=== PATIENT | female | born 1935 | race Caucasian/White ===

== ENCOUNTER 2018-04-18 16:13 | Inpatient (IN) | payer MEDICARE, OTHER ==
[~2018-04-18] VITALS: Ht 152.4 cm; Wt 48.2 kg
[~2018-04-18 16:13] MED LIST: ACET500T73 PO; ALBU1.25 IH; ALBU1.25 NEB; AMLO2.5T3 PO; ATOR20TA PO; Aspirin PO; BUDE0.5A3 IH; CALC-524 PO; CARI350T14 PO; CARV3.122 PO; CHOL500016 PO; DULO30CA2 PO; FLAX100016 PO; FLUT1DIS3 IH; FURO-81 PO; GABA300C PO; GABA300C10 PO; GABA600T2 PO; HYDR12.53 PO; LISI-410 PO; LISI-414 PO; METH-3 PO; METO25TA4 PO; MULT1TAB52 PO; Magnesium Oxide PO; NAPR-636 PO; OMEG300C PO; OMEP20CA12 PO; PANT40TA3 PO; POTA20TA14 PO; PRAM0.255 PO; PRAV20TA2 PO; PREG100C PO; RAMI1.2524 PO; RAMI5CAP57 PO; ROPI3TAB4 PO; SPIR25TA PO; TERI2.4P SQ; TORS20TA2 PO; TRAM50TA PO; ZOLP10TA PO
--- NOTE | 2018-04-18 16:30 | NUR ---
ARRIVAL PT ARRIVED TO UNIT VIA W/C, NO S/S OF DISTRESS NOTED. V/S OBTAINED. CALL LIGHT WITHIN REACH. BED LOCKED AND LOW POSITION. WILL CONT TO MONITOR.
[2018-04-18] MEDS ORDERED: TYLENOL PO PRN (17:00)
[2018-04-18] MEDS ORDERED: ZOFRAN IV PRN (17:00)
[2018-04-18 17:33] VITALS: BP 178/100
[2018-04-18 17:42] LABS: BASOPHIL % 0.6 % (0.0-0.2); EOSINOPHIL # 0.2 10^3/uL (0.0-0.2); EOSINOPHIL % 3.1 % (0.0-5.0); HEMOGLOBIN 13.1 g/dL (12.0-15.0); LYMPHOCYTES # 1.1 10^3/uL (1.0-4.8); LYMPHOCYTES % 23.8 % (24.0-44.0); MEAN CELL HGB 30.5 pg (26-34); MEAN CELL HGB CONCENTRATION 33.5 g/dL (33-37); MEAN CORP VOLUME 91.1 fL (78-100); MEAN PLATELET VOLUME 9.4 fL (7.8-11.0); MONOCYTES # 0.8 10^3/uL (0.3-0.8); MONOCYTES % 16.7 % (5.0-12.0); NEUTROPHIL # 2.6 10^3/uL (1.8-7.7); NEUTROPHILS % 55.4 % (41.0-85.0); RED CELL DISTRIBUTION WIDTH 16.4 % (11.5-14.5); WHITE BLOOD CELL 4.8 10^3/uL (4.5-11.0)
[2018-04-18 17:59] LABS: CALCIUM 9.5 mg/dL (8.4-10.5); CARBON DIOXIDE 29.3 mmol/L (20.0-32)
[2018-04-18 19:17] LABS: ABG PCO2 30.7 mmHg (35.0-45.0); ABG PH 7.532 (7.350-7.450); BE(B) 3.1 mmol/L (-2.0-2.0); HCO3act 25.2 mmol/L (22.0-26.0); pO2 72.5 mmHg (75.0-100.0)
--- NOTE | 2018-04-18 19:26 | DIREP ---
PROCEDURE:CHEST 2 VIEWS COMPARISON:None. INDICATIONS:copd FINDINGS: LUNGS/PLEURA:No acute cardiopulmonary disease. No effusions. VASCULATURE:Normal. Unremarkable pulmonary vasculature. CARDIAC:Normal. No cardiac silhouette abnormality or cardiomegaly. MEDIASTINUM:Normal. No visible mass or adenopathy. BONES:Severe S-shaped scoliosis of the spine with convexity to the right in the thoracic region and convexity to the left in the cervical and lumbar regions. Degenerative changes in the shoulders. Postop changes in the cervical spine. OTHER:Negative. CONCLUSION: 1. No acute cardiopulmonary disease. Degenerative and postop changes in the spine with scoliosis. Dictated by: Kade Orozco M.D. on 04/18/2018 at 07:23 PM
[2018-04-18] MEDS ORDERED: NS 100ML 100 ML IV ONE (20:04)
[2018-04-18] MEDS ORDERED: ROCEPHIN ONE (20:04)
[2018-04-18 20:07] LABS: BILIRUBIN,URINE NEGATIVE (NEGATIVE); UROBILINOGEN,URINE NORMAL (NEGATIVE)
[2018-04-18 20:08] VITALS: BP 135/89
[2018-04-18] MEDS: NS 1000ML/KCL 20MEQ 1,000 ML IV SCH (20:15)
[2018-04-18 20:17] LABS: APPEARANCE,URINE CLEAR (CLEAR); UA COLOR YELLOW (YELLOW)
[2018-04-18] MEDS ORDERED: ROCEPHIN 1,000 MG in NS 100ML 100 ML IV SCH (20:30)
[2018-04-18] MEDS: PULMICORT IH SCH (20:30)
[2018-04-18] MEDS: VENTOLIN IH SCH (20:30)
[2018-04-18] MEDS ORDERED: PULMICORT IH SCH (21:00)
[2018-04-18] MEDS ORDERED: NEURONTIN PO SCH (21:00)
[2018-04-18] MEDS ORDERED: COREG PO SCH (21:00)
[2018-04-18] MEDS: NEURONTIN PO SCH (21:02)
[2018-04-18] MEDS: COREG PO SCH (21:02)
[2018-04-18] MEDS: LIPITOR PO SCH (21:02)
[2018-04-18] MEDS: MIRAPEX PO SCH (21:02)
[2018-04-18] MEDS: AMBIEN PO PRN (21:18)
--- NOTE | 2018-04-18 22:54 | NUR ---
repeat lactic drawn result 0.9 was 4 on admission
[2018-04-18] MEDS ORDERED: BENADRYL PO ONE (23:00)
[2018-04-19 00:49] VITALS: BP 142/78
[2018-04-19] MEDS: VENTOLIN IH SCH ×4 (02:03→20:20)
[2018-04-19] MEDS: NS 1000ML/KCL 20MEQ 1,000 ML IV SCH ×2 (02:45→16:23)
[2018-04-19] MEDS: ULTRAM PO PRN ×2 (04:09→22:22)
[2018-04-19 05:07] VITALS: BP 163/91
--- NOTE | 2018-04-19 06:30 | NUR ---
REPORT REPORT RECEIVED FROM Harjinder ALANIS LVN ASSUMED CARE OF PT
--- NOTE | 2018-04-19 07:42 | NUR ---
STATUS RECEIVED BEDSIDE REPORT AND ASSUMED CARE. PATIENT IN BED LOW LOCKED POSITION WITH SIDE RAILS UPX2. FAMILY AT BEDSIDE, CALL LIGHT WITHIN REACH. PATIENT STATES " I DO NOT HAVE ANY NEEDS RIGHT NOW"
[2018-04-19] MEDS ORDERED: NORCO 5MG PO ONE (08:04)
[2018-04-19] MEDS: CYMBALTA PO SCH (08:17)
[2018-04-19] MEDS: ASPIRIN EC PO SCH (08:17)
[2018-04-19] MEDS: MIRAPEX PO SCH ×2 (08:17→20:55)
[2018-04-19] MEDS: PROTONIX PO SCH (08:17)
[2018-04-19] MEDS: COZAAR PO SCH (08:17)
[2018-04-19] MEDS: NEURONTIN PO SCH ×4 (08:17→20:55)
[2018-04-19] MEDS: COREG PO SCH ×2 (08:18→21:13)
[2018-04-19 08:25] VITALS: BP 163/92
[2018-04-19] MEDS: PULMICORT IH SCH ×2 (08:47→20:20)
[2018-04-19] MEDS ORDERED: PROTONIX PO SCH (09:00)
--- NOTE | 2018-04-19 10:15 | NUR ---
DISCHARGE PLAN CM VISITED WITH PATIENT CONCERNING DISCHARGE PLAN AND GOAL. PATIENT LIVES AT HOME ALONE. FAIRLY INDEPENDENT PRIOR TO HOSPITALIZATION. LIVES IN [facility]. DAUGHTER ALSO LIVES IN [facility] TO ASSIST WHEN NEEDED. HAS WALKER, CANE, AND SHOWER CHAIR. HOME O2 USED AT NIGHT TIME ONLY PROVIDED BY [facility]. CM EDUCATED PATIENT ON HOME HEALTH, OUTPATIENT PHYSICAL THERAPY, AND HALFWAY FACILITY. PT STATED, "I HAD [facility] IN THE PAST. I WAS NOT VERY HAPPY WITH THEIR SERVICES. I WOULD LIKE TO TRY [facility] THIS TIME." CHOICE LETTER SIGNED. [facility] FROM [facility] CONTACTED ABOUT REFERRAL. PATIENT WILL POSSIBLY BE DISCHARGED OVER THE WEEKEND. [facility] WILL COME UP TO HOSPITAL TO SPEAK WITH PATIENT THIS AFTERNOON. DISCHARGE GOAL IS TO DISCHARGE HOME WITH [facility], SELF CARE, AND [facility] TO CONTINUE TO PROVIDE OXYGEN NEEDS.
[2018-04-19 12:40] VITALS: BP 152/89
[2018-04-19] MEDS: ANALPRAM 2.5% TP SCH ×3 (15:08→21:18)
[2018-04-19] MEDS: ATARAX PO ONE ×2 (15:08→16:23)
[2018-04-19 16:26] VITALS: BP 156/83
--- NOTE | 2018-04-19 18:30 | NUR ---
DR HI DO NOTIFIED OF LOOSE STOOL, ORDER RECEIVED FOR CDIFF, GRAM STAIN, WBC, AND CULTURE OF STOOL. WILL CONT TO MONITOR.
[2018-04-19] MEDS ORDERED: IMODIUM PO PRN (19:00)
[2018-04-19] MEDS: ATARAX PO SCH (20:54)
[2018-04-19] MEDS: LEVAQUIN PO SCH (20:54)
[2018-04-19 21:05] VITALS: BP 157/84
[2018-04-19] MEDS: LIPITOR PO SCH (21:13)
[2018-04-19] MEDS: AMBIEN PO PRN (23:23)
[2018-04-20 00:05] VITALS: BP 160/101
[2018-04-20] MEDS: NS 1000ML/KCL 20MEQ 1,000 ML IV SCH ×3 (01:19→18:45)
[2018-04-20] MEDS: VENTOLIN IH SCH ×4 (03:01→21:01)
[2018-04-20 04:21] VITALS: BP 155/84
[2018-04-20 08:57] VITALS: BP 154/91
[2018-04-20] MEDS: PULMICORT IH SCH ×2 (08:57→21:01)
[2018-04-20] MEDS: COZAAR PO SCH (08:59)
[2018-04-20] MEDS: ATARAX PO SCH ×2 (08:59→21:13)
[2018-04-20] MEDS: MIRAPEX PO SCH ×2 (08:59→21:13)
[2018-04-20] MEDS: NEURONTIN PO SCH ×3 (08:59→21:13)
[2018-04-20] MEDS: PROTONIX PO SCH (08:59)
[2018-04-20] MEDS: COREG PO SCH ×2 (08:59→21:13)
[2018-04-20] MEDS: ASPIRIN EC PO SCH (08:59)
[2018-04-20] MEDS: CYMBALTA PO SCH (08:59)
[2018-04-20] MEDS: ANALPRAM 2.5% TP SCH ×2 (09:00→21:13)
--- NOTE | 2018-04-20 12:15 | NUR ---
DR. HI DO HERE TO SEE PT AT THIS TIME. PT OKAY TO BE SALINE LOCKED.
--- NOTE | 2018-04-20 13:07 | HPH ---
ADMIT DATE: 04/18/2018 CHIEF COMPLAINT: Nausea, vomiting, anorexia, chills, fever-like symptoms, dehydration, weakness and loss of weight. HISTORY OF PRESENT ILLNESS: The patient is an 82-year-old white female with underlying history of hypertension, hypertensive heart disease and COPD and multiple hospitalizations for pneumonia and worsening COPD status with severe degenerative joint disease and significant kyphoscoliosis and she came to the office with nausea, vomiting, chills and fever and felt very poorly and had some degree of decreased urination and no specific dysuria or frequency was complained at that time. The patient had elevated lactic acid ____ urine and was admitted with possible urosepsis and urinary tract infection, dehydration for further evaluation and management. The office notes had been sent, which showed the details of the past history. ALLERGIES: PENICILLIN, SULFA, FOSAMAX, CODEINE. MEDICATIONS: She has been on multiple medications, which include Tylenol 1 gram q. 6 hours p.r.n., albuterol nebulizer treatment 4 times a day, Soma compound 350 mg twice a day on p.r.n. basis, vitamin D3 5000 units daily, Lasix 20 mg once a day, ramipril 1.25 mg twice a day, omega-3 fish oil capsule 300 mg once a day, Mirapex 0.125 mg at bedtime, Lyrica 100 mg capsule twice a day, aspirin 81 mg once a day, magnesium 400 mg twice a day. She takes Pulmicort nebulizer treatment twice a day. PAST MEDICAL HISTORY: See the office details for the past history, multiple admissions for general debility, weakness, ____ and has had hip replacement and even had an episode of paroxysmal atrial fibrillation in the past, has been intolerant to anticoagulation. SOCIAL HISTORY: Prior history of significant smoking, almost 40 pack year history of smoking. No history of any ethanol abuse. FAMILY HISTORY: Positive for heart problem. PHYSICAL EXAMINATION: GENERAL: Alert, awake, oriented and she is 152 cm, 48 kg, BMI 20.8. VITAL SIGNS: At the time of admission with pulse of 80, temperature 98, blood pressure 156/90, respirations were 16 and saturation 92 on 2 liters nasal cannula, leant and asthenically built with weight loss. HEENT: Unremarkable. She was having chills and rigors, but her temperature was normal. NECK: No JVD. No carotid bruits. BACK: Kyphoscoliosis noted and she has ____. LUNGS: Poor air entry bilaterally. HEART: Sounds S1, S2 normal. ABDOMEN: Scaphoid. No organomegaly. Bowel sounds present. EXTREMITIES: Proximal muscle wasting, very unsteady on her feet, distal pulses felt. NEUROLOGIC: No focal neuro deficit is documented. LABORATORY DATA: Showed normal CBC. Chemistries were all normal. Initial blood gas, pH 7.53 with pCO2 of 30 and pO2 of 72. Lactic acid was 4, which came down to 0.9 and she got judicious fluids. Urine showed wbc's and few bacteria. Glucose was 111. Chest x-ray shows no active cardiopulmonary disease. IMPRESSION: Elevated lactic acid, urinary tract infection, chronic obstructive pulmonary disease, possible sepsis or very likely systemic inflammatory response syndrome. PLAN: At this time is IV fluids, antibiotics and further management depending on the clinical course. Aleah Thornton MD DR: SON/sandra JOB# [id number]
[2018-04-20 14:39] VITALS: BP 152/78
--- NOTE | 2018-04-20 18:40 | NUR ---
STATUS RECEIVED BEDSIDE REPORT AND ASSUMED CARE. PATIENT IN BED LOW LOCKED POSITION WITH SIDE RAILS UPX2, CALL LIGHT WITHIN REACH. PATIENT STATES DENIES FURTHER NEEDS AT THIS TIME
--- NOTE | 2018-04-20 18:45 | NUR ---
STATUS RECEIVED BEDSIDE REPORT AND ASSUMED CARE. PATIENT IN BED LOW LOCKED POSITION WITH SIDE RAILS UPX2, CALL LIGHT WITHIN REACH. PATIENT STATES DENIES FURTHER NEEDS AT THIS TIME. ASSUMED PATIENT CARE
[2018-04-20 20:03] VITALS: BP 163/99
[2018-04-20] MEDS: LIPITOR PO SCH (21:13)
[2018-04-20] MEDS: LEVAQUIN PO SCH (21:15)
[2018-04-20] MEDS: AMBIEN PO PRN (21:31)
[2018-04-21 00:17] VITALS: BP 158/88
--- NOTE | 2018-04-21 02:46 | PNH ---
DATE: 04/19/2018 SUBJECTIVE: The patient had some degree of diarrhea. Stool samples have been sent. Overall, she feels well. She has a rash, she thinks it is related to Rocephin. I switched her to Levaquin and urine cultures are awaited. OBJECTIVE: VITAL SIGNS: Stable. NECK: No JVD, no carotid bruits. LUNGS: Clear. HEART: Sounds normal. Hydration status is improved. She is not having any fever or chills. Her lactic ____ is down from 4 to 0.9. Continue same optimized medical therapy, awaiting cultures. Laxmichand MD Norberto DR: SON/sandra JOB# [id number]
[2018-04-21] MEDS: VENTOLIN IH SCH ×3 (03:00→15:00)
[2018-04-21 04:28] VITALS: BP 150/78
[2018-04-21] MEDS: NS 1000ML/KCL 20MEQ 1,000 ML IV SCH (07:14)
[2018-04-21] MEDS: COZAAR PO SCH (09:00)
[2018-04-21] MEDS: PULMICORT IH SCH (09:23)
[2018-04-21] MEDS: CYMBALTA PO SCH (09:25)
[2018-04-21] MEDS: NEURONTIN PO SCH (09:25)
[2018-04-21] MEDS: MIRAPEX PO SCH (09:25)
[2018-04-21] MEDS: ASPIRIN EC PO SCH (09:25)
[2018-04-21 09:26] VITALS: BP 176/97
[2018-04-21] MEDS: COREG PO SCH (09:26)
[2018-04-21] MEDS: ATARAX PO SCH (09:26)
[2018-04-21] MEDS: PROTONIX PO SCH (09:26)
[2018-04-21] MEDS: ANALPRAM 2.5% TP SCH (09:26)
--- NOTE | 2018-04-21 12:33 | PRM.PN ---
Subjective Subjective Date: Apr 21, 2018 Time: 12:25 Subjective Very pleasant elderly lady seen today sitting up in bed eating her breakfast. She has no new complaints. She seems to have improved a great deal. She is no longer having diarrhea. However she says she lives alone and she does not have transportation if she is discharged today. We are reordering a potassium level today to check the levels today. Patient History: Alzheimer's disease G8 SISTER, , Age:85 Chronic obstructive pulmonary disease G8 BROTHER, , Age:85 FH: rheumatoid arthritis G8 BROTHER No known health problems 33 FATHER, , Age:48 G8 SISTER 19 CHILD 19 CHILD 19 CHILD 19 CHILD Unknown Objective Vitals and I/O Vital Signs Date Time Temp Pulse Resp B/P (MAP) Pulse Ox O2 Delivery O2 Flow Rate FiO2 04/21/18 10:28 Room Air 04/21/18 09:35 96 17 93 04/21/18 09:26 98.1 176/97 (123) 98.1 04/21/18 04:28 1.00 04/19/18 20:27 28 Allergies Coded Allergies Penicillins (Unverified Allergy, Unknown, unknown, 06/15/17) Sulfa (Sulfonamide Antibiotics) (Unverified Allergy, Unknown, 11/16/15) alendronate sodium (Unverified Allergy, Unknown, 11/16/15) codeine (Unverified Allergy, Unknown, 11/16/15) I & O 12/11/17 16:34 Thru 04/21/18 10:23 Intake Total 6092 ml Output Total 675 ml Balance 5417 ml General: Alert, Cooperative, No acute distress HEENT: Atraumatic, PERRLA Neck: Supple, No thyromegaly Lungs: Clear to auscultation, Normal air movement Heart: Regular rate, Normal S1, Normal S2, No murmurs Abdomen: Normal bowel sounds, Soft Extremities: No clubbing, No cyanosis Skin: No breakdown, No significant lesion All Results(Lab/Rad) Problems Medical Problems: (1) Anxiety Status: Acute ICD Codes: F41.9 - Anxiety disorder, unspecified SNOMED: 00426034 Responsible Provider: Nishant Rae MD - ED Problem Recorded: Jun 20, 2016 19:34 Last Edited By: Nishant Rae MD - ED on Jun 20, 2016 19:34 (2) Contusion of rib on left side Status: Acute ICD Codes: S20.212A - Contusion of left front wall of thorax, initial encounter SNOMED: 804989945 Responsible Provider: Piter Loera MD Problem Recorded: December 08, 2014 17:19 Last Edited By: Piter Loera MD on December 08, 2014 17:19 (3) COPD (chronic obstructive pulmonary disease) Status: Acute ICD Codes: J44.9 - Chronic obstructive pulmonary disease, unspecified SNOMED: 14339437 Responsible Provider: Nishant Rae MD - ED Problem Recorded: Jun 20, 2016 19:34 Last Edited By: Beau Ricci D.O. - ED on Aug 01, 2016 23:50 (4) Dyspnea Status: Acute ICD Codes: R06.00 - Dyspnea, unspecified SNOMED: 510731058 Responsible Provider: Beau Ricci D.O. - ED Problem Recorded: Aug 01, 2016 23:50 Last Edited By: Beau Ricci D.O. - ED on Aug 01, 2016 23:50 (5) Elevated troponin I level Status: Acute ICD Codes: R74.8 - Abnormal levels of other serum enzymes SNOMED: 278901641 Responsible Provider: Beau Ricci D.O. - ED Problem Recorded: Aug 01, 2016 23:50 Last Edited By: Automated Background Job on December 03, 2017 17:02 (6) Thoracic back sprain Status: Acute ICD Codes: S23.9XXA - Sprain of unspecified parts of thorax, initial encounter SNOMED: 499905108 Responsible Provider: Amelie Cagle MD Problem Recorded: May 23, 2015 21:22 Last Edited By: Amelie Cagle MD on May 23, 2015 21:22 (7) Troponin level elevated Status: Acute ICD Codes: R74.8 - Abnormal levels of other serum enzymes SNOMED: 801389425, [id number], [id number] Responsible Provider: SANDRO DO MD Problem Recorded: Aug 02, 2016 07: 14 Last Edited By: Automated Background Job on December 03, 2017 17:02 Medication Reconciliation Scheduled Atorvastatin 20MG (Lipitor 20MG), 1 TAB PO HS, (Reported) Budesonide (Pulmicort), 0.5 MG IH BID Carvedilol (Carvedilol), 3.125 MG PO BID Cholecalciferol (Vitamin D3) (Vitamin D3), 5,000 UNIT PO DAILY Furosemide (Lasix), 20 MG PO DAILY24 Gabapentin (Neurontin), 300 MG PO TID [place]-3 Fatty Acids (Fish Oil), 300 MG PO DAILY, (Reported) Pantoprazole Sodium (Protonix), 40 MG PO DAILY Pramipexole Di-Hcl (Mirapex), 0.125 MG PO HS, (Reported) Pregabalin (Lyrica), 1 CAP PO BID, (Reported) Ramipril (Ramipril), 1.25 MG PO BID Zolpidem Tartrate (Ambien), 10 MG PO HS, (Reported) [Aspirin], 162 MG PO DAILY [Magnesium Oxide], 400 MG PO BID Scheduled PRN Acetaminophen (Acetaminophen), 1,000 MG PO Q6H PRN for PAIN MILD Albuterol Sulfate (Albuterol Sulfate), 1.25 MG IH Q6 PRN for SHORTNESS OF BREATH Carisoprodol (Carisoprodol), 350 MG PO BID PRN for BACK PAIN Tramadol Hcl (Tramadol Hcl), 50 MG PO TID PRN for PAIN Course Sepsis Screening Results: Posi: NEGATIVE Sepsis Qualifier/Stage: NO DEFINITE RISK Vitals & review Data Assessment/Plan Assessment/Plan Assessment/Plan Problems Medical Problems: (1) Anxiety fairly stable. Continue on Continue duloxetine, hydroxyzine, and zolpidem at night (2) Contusion of rib on left side stable. Continue pain medications (3) COPD (chronic obstructive pulmonary disease) stable. Continue duo nebs, oxygen, and Levaquin. (4) Dyspnea improved (5) Elevated troponin I level stable as per cardiology (6) Thoracic back sprain continue pain medications (7) sepsis secondary to UTI: urine culture growing Escherichia coli sensitive to Levaquin. Continue Levaquin. Blood cx negative. Rash has improved as per pt I did not see a stool culture or C. difficile. Patient seems to have improved. Diarrhea too. Continue Levaquin as patient is improving. LUCIUS LANE DO Apr 21, 2018 12:33
[2018-04-21 12:55] LABS: CARBON DIOXIDE 25.6 mmol/L (20.0-32)
--- NOTE | 2018-04-21 14:54 | PRM.DC ---
Discharge Summary Date of Discharge: Apr 21, 2018 Patient History: Alzheimer's disease G8 SISTER, , Age:85 Chronic obstructive pulmonary disease G8 BROTHER, , Age:85 FH: rheumatoid arthritis G8 BROTHER No known health problems 33 FATHER, , Age:48 G8 SISTER 19 CHILD 19 CHILD 19 CHILD 19 CHILD Unknown Additional Comments CHIEF COMPLAINT: Nausea, vomiting, anorexia, chills, fever-like symptoms, dehydration, weakness and loss of weight. HISTORY OF PRESENT ILLNESS: The patient is an 82-year-old white female with underlying history of hypertension, hypertensive heart disease and COPD and multiple hospitalizations for pneumonia and worsening COPD status with severe degenerative joint disease and significant kyphoscoliosis and she came to the office with nausea, vomiting, chills and fever and felt very poorly and had some degree of decreased urination and no specific dysuria or frequency was complained at that time. The patient had elevated lactic acid ____ urine and was admitted with possible urosepsis and urinary tract infection, dehydration for further evaluation and management. The office notes had been sent, which showed the details of the past history. ALLERGIES: PENICILLIN, SULFA, FOSAMAX, CODEINE. MEDICATIONS: She has been on multiple medications, which include Tylenol 1 gram q. 6 hours p.r.n., albuterol nebulizer treatment 4 times a day, Soma compound 350 mg twice a day on p.r.n. basis, vitamin D3 5000 units daily, Lasix 20 mg once a day, ramipril 1.25 mg twice a day, omega-3 fish oil capsule 300 mg once a day, Mirapex 0.125 mg at bedtime, Lyrica 100 mg capsule twice a day, aspirin 81 mg once a day, magnesium 400 mg twice a day. She takes Pulmicort nebulizer treatment twice a day. PAST MEDICAL HISTORY: See the office details for the past history, multiple admissions for general debility, weakness, ____ and has had hip replacement and even had an episode of paroxysmal atrial fibrillation in the past, has been intolerant to anticoagulation. SOCIAL HISTORY: Prior history of significant smoking, almost 40 pack year history of smoking. No history of any ethanol abuse. FAMILY HISTORY: Positive for heart problem. HOSP COURSE: Patient was admitted with sepsis secondary to UTI and she was started on IV Rocephin and urine cultures were sent. Urine cultures growing Escherichia coli sensitive to several antibiotics. However patient was complaining of a rash which she thinks is secondary to ceftriaxone. Rocephine was changed to by mouth Levaquin which patient has so far tolerated well. Blood cultures are negative. The rash has improved with topical hydrocortisone. She apparently had diarrhea for which a stool culture and CDiff were ordered. However the diarrhea has ceased and patient was unable to produce a stool specimen. Today she looks a lot better. The rash is improving. She has not had any fever. Urine culture is growing Escherichia coli sensitive to Levaquin. Lactic acid has decreased from 4-0.9. Patient wants to go home and she has so stated. I have discussed with Dr. Thornton who said it was okay as long as the patient will follow-up in his office. Patient to be discharged on her home medication plus 4 days dose of Levaquin and 30-days dose of duloxetine. Her questions were answered. The rest of her medications were optimized during this admission. Exam/Vitals Vital Signs Date Time Temp Pulse Resp B/P (MAP) Pulse Ox O2 Delivery O2 Flow Rate FiO2 04/21/18 15:02 98.7 102 17 135/83 (100) 93 Room Air 98.7 04/21/18 04:28 1.00 04/19/18 20:27 28 Allergies Coded Allergies Penicillins (Unverified Allergy, Unknown, unknown, 06/15/17) Sulfa (Sulfonamide Antibiotics) (Unverified Allergy, Unknown, 11/16/15) alendronate sodium (Unverified Allergy, Unknown, 11/16/15) codeine (Unverified Allergy, Unknown, 11/16/15) I & O 12/11/17 16:34 Thru 04/21/18 14:14 Intake Total 6092 ml Output Total 2075 ml Balance 4017 ml General: Alert, Oriented X3 HEENT: Atraumatic, PERRLA Neck: Supple, No JVD Lungs: Clear to auscultation, Normal air movement Heart: Regular rate, Normal S1, Normal S2, No murmurs Abdomen: Normal bowel sounds, Soft Extremities: No clubbing, No cyanosis Skin: No rashes, No breakdown Neuro: Normal speech Psych/Mental Status: Mental status NL Results(Labs/Rad) Laboratory Tests 04/21/18 12:30: Sodium Level 131L, Potassium Level 4.2, Chloride Level 100.0, Carbon Dioxide Level 25.6, Glucose Level 115H, Blood Urea Nitrogen 7, Creatinine 0.75, Calcium Level 9.0, Anion Gap 9.6, Estimated GFR () 89.5, BUN/Creatinine Ratio 9.0 Scheduled Atorvastatin 20MG (Lipitor 20MG), 1 TAB PO HS, (Reported) Budesonide (Pulmicort), 0.5 MG IH BID Carvedilol (Carvedilol), 3.125 MG PO BID Cholecalciferol (Vitamin D3) (Vitamin D3), 5,000 UNIT PO DAILY Duloxetine Hcl (Cymbalta), 30 MG PO DAILY Furosemide (Lasix), 20 MG PO DAILY24 Gabapentin (Neurontin), 300 MG PO TID Levofloxacin (Levaquin), 500 MG PO Q24HRS [place]-3 Fatty Acids (Fish Oil), 300 MG PO DAILY, (Reported) Pantoprazole Sodium (Protonix), 40 MG PO DAILY Pramipexole Di-Hcl (Mirapex), 0.125 MG PO HS, (Reported) Pregabalin (Lyrica), 1 CAP PO BID, (Reported) Ramipril (Ramipril), 1.25 MG PO BID Zolpidem Tartrate (Ambien), 10 MG PO HS, (Reported) [Aspirin], 162 MG PO DAILY [Magnesium Oxide], 400 MG PO BID Scheduled PRN Acetaminophen (Acetaminophen), 1,000 MG PO Q6H PRN for PAIN MILD Albuterol Sulfate (Albuterol Sulfate), 1.25 MG IH Q6 PRN for SHORTNESS OF BREATH Carisoprodol (Carisoprodol), 350 MG PO BID PRN for BACK PAIN Tramadol Hcl (Tramadol Hcl), 50 MG PO TID PRN for PAIN Date of Reassessment: Apr 21, 2018 Time of Reassessment: 1214 Blood Pressure Systolic: 176 Blood Pressure Diastolic: 97 Departure Discharge Disposition: Home (With HH) LUCIUS LANE DO Apr 21, 2018 14:54
[2018-04-21 15:02] VITALS: BP 135/83
[2018-04-21] MEDS ORDERED: DULO30CA2 PO (15:04)
[2018-04-21] MEDS ORDERED: LEVO500T51 PO (15:04)
--- NOTE | 2018-04-21 16:54 | NUR ---
PRESCRIPTION PRESCRIPTION CALLED IN TO [facility] PER PT REQUEST
[2018-04-21 16:57] VITALS: BP 135/83
== END 2018-04-21 17:55 | disposition home health service (06) | DRG 872 ==
LOC: MS 16:13 → EDPENDDISTM 04-21 16:58
PROVIDERS: ADMIT Specialist; ATTEND Specialist
DX: A41.9 Sepsis, unspecified organism (principal); N39.0 Urinary tract infection, site not specified; I50.32 Chronic diastolic (congestive) heart failure; J44.9 Chronic obstructive pulmonary disease, unspecified; I48.0 Paroxysmal atrial fibrillation; M41.9 Scoliosis, unspecified; M19.90 Unspecified osteoarthritis, unspecified site; R21 Rash and other nonspecific skin eruption; B96.20 Unspecified Escherichia coli [E. coli] as the cause of diseases classified elsewhere; Z96.641 Presence of right artificial hip joint; F41.9 Anxiety disorder, unspecified; I27.20 Pulmonary hypertension, unspecified; I11.0 Hypertensive heart disease with heart failure; F32.9 Major depressive disorder, single episode, unspecified; R63.0 Anorexia; M48.00 Spinal stenosis, site unspecified; M81.0 Age-related osteoporosis without current pathological fracture; Z90.49 Acquired absence of other specified parts of digestive tract; Z90.710 Acquired absence of both cervix and uterus; Z88.0 Allergy status to penicillin; Z88.5 Allergy status to narcotic agent; Z88.2 Allergy status to sulfonamides; Z87.01 Personal history of pneumonia (recurrent); Z87.891 Personal history of nicotine dependence; Z86.718 Personal history of other venous thrombosis and embolism; Z88.8 Allergy status to other drugs, medicaments and biological substances; Z82.49 Family history of ischemic heart disease and other diseases of the circulatory system; Z82.0 Family history of epilepsy and other diseases of the nervous system; Z82.5 Family history of asthma and other chronic lower respiratory diseases; Z82.61 Family history of arthritis; Z68.20 Body mass index [BMI] 20.0-20.9, adult
CPT/HCPCS: 36415; 36600; 71046; 80048; 80053; 81000; 82803; 83605; 83735; 85025; 87040; 87077; 87086; 87186; 94640; J0696; J1956; J2405; J3490; J7050; J7627; Q0163; J7611; J8499

== ENCOUNTER 2018-04-24 22:39 | Emergency (ER) | payer MEDICARE, OTHER ==
[~2018-04-24] VITALS: Ht 152.4 cm; Wt 48.1 kg
[~2018-04-24 22:39] MED LIST changes: +LEVO500T51 PO
--- NOTE | 2018-04-24 22:40 | NUR ---
ARRIVAL PT ARRIVED VIA [facility] TO ER 2 WITH C/O WEAKNESS, HTN, EDEMA & PAIN TO LOWER EXTREMITIES. PT STATES "I'VE BEEN REAL WEAK AND DIZZY AND MY LOWER LEGS AND FEET HURT." PT STATES HAS BEEN NAUSEATED BUT IS NOT CURRENTLY. EMS STATES "PT ALSO HAS A BROKEN NECK." PT STATES NECK HAS BEEN BROKEN FOR "ABOUT A YEAR I THINK." EDP IN ROOM AT THIS TIME.
[2018-04-24 22:52] VITALS: BP 173/99
--- NOTE | 2018-04-24 22:59 | ER.PDOC ---
General Chief Complaint: General Complaint Stated Complaint: WEAKNESS, HTN TRAVEL OUT OF US: No Time seen by MD: 22:48 Source: patient, EMS Exam Limitations: no limitations History of Present Illness Initial Comments Pt states that over the last few days, but, specially today, she has felt weak, swelling in her legs, denies pain or acute SOB. Pt and family also report the appearance of tremors on both upper extremities that have been present for a couple of weeks Timing/Duration: 24 hours Allergies: Coded Allergies: Penicillins (Unverified Allergy, Unknown, unknown, 06/15/17) Sulfa (Sulfonamide Antibiotics) (Unverified Allergy, Unknown, 11/16/15) alendronate sodium (Unverified Allergy, Unknown, 11/16/15) codeine (Unverified Allergy, Unknown, 11/16/15) Home Meds Active Scripts Duloxetine Hcl (CYMBALTA) 30 Mg Capsule.dr, 30 MG PO DAILY for 30 Days Prov:LUCIUS LANE DO 04/21/18 Levofloxacin (LEVAQUIN) 500 Mg Tablet, 500 MG PO Q24HRS for 4 Days, TABLET 0 Refills Prov:LUCIUS LANE DO 04/21/18 Ramipril (RAMIPRIL) 1.25 Mg Capsule, 1.25 MG PO BID for 30 Days Prov:SANDRO DO MD 12/13/17 Furosemide (LASIX) 20 Mg Tablet, 20 MG PO DAILY24 for 30 Days, TABLET Prov:SANDRO DO MD 12/13/17 Cholecalciferol (Vitamin D3) (VITAMIN D3) 5,000 Unit Tablet, 5000 UNIT PO DAILY for 30 Days, TABLET Prov:SANDRO DO MD 12/13/17 Pantoprazole Sodium (PROTONIX) 40 Mg Tablet.dr, 40 MG PO DAILY for 30 Days Prov:SANDRO DO MD 12/13/17 [Magnesium Oxide] 1 TABLET No Conflict Check, 400 MG PO BID for 30 Days Prov:SANDRO DO MD 12/13/17 Budesonide (PULMICORT) 0.5 Mg/2 Ml Ampul.neb, 0.5 MG IH BID for 30 Days Prov:SANDRO DO MD 12/13/17 Tramadol Hcl (TRAMADOL HCL) 50 Mg Tablet, 50 MG PO TID PRN for PAIN for 30 Days , TABLET Prov:SANDRO DO MD 12/13/17 Gabapentin (NEURONTIN) 300 Mg Capsule, 300 MG PO TID for 30 Days, CAPSULE Prov:SANDRO DO MD 12/13/17 Acetaminophen (ACETAMINOPHEN) 500 Mg Tablet, 1000 MG PO Q6H PRN for PAIN MILD for 30 Days, TABLET Prov:SANDRO DO MD 12/13/17 Carvedilol (CARVEDILOL) 3.125 Mg Tablet, 3.125 MG PO BID for 30 Days, TABLET Prov:SANDRO DO MD 12/13/17 Carisoprodol (CARISOPRODOL) 350 Mg Tablet, 350 MG PO BID PRN for BACK PAIN for 10 Days, TABLET Prov:SANDRO DO MD 12/13/17 Albuterol Sulfate (ALBUTEROL SULFATE) 1.25 Mg/3 Ml Vial.neb, 1.25 MG IH Q6 PRN for SHORTNESS OF BREATH for 10 Days Prov:SANDRO DO MD 12/13/17 [Aspirin] 81 MG TABLET.DR Doty Conflict Check, 162 MG PO DAILY for 30 Days Prov:SANDRO DO MD 08/07/16 Reported Medications Pregabalin (LYRICA) 100 Mg Capsule, 1 CAP PO BID, #60 CAP 12/10/17 Pramipexole Di-Hcl (MIRAPEX) 0.25 Mg Tablet, 0.125 MG PO HS, TABLET 12/09/17 Zolpidem Tartrate (AMBIEN) 10 Mg Tablet, 10 MG PO HS, TABLET 12/09/17 Harrison-3 Fatty Acids (FISH OIL) 300 Mg Capsule, 300 MG PO DAILY, CAPSULE 11/16/15 Atorvastatin 20MG (LIPITOR 20MG) 20 Mg Tablet, 1 TAB PO HS, #90 TAB 3 Refills 11/16/15 Past Medical History Medical History: asthma, COPD, high cholesterol, hypertension, other Surgical History: appendectomy, hysterectomy LMP (females 10-50): hysterectomy Social History Smoking: non-smoker Alcohol Use: none Drug Use: none Review of Systems Constitutional: malaise, weakness EENTM: no symptoms reported Respiratory: shortness of breath Cardiovascular: no symptoms reported Gastrointestinal: no symptoms reported Genitourinary: no symptoms reported Musculoskeletal: see HPI Skin: no symptoms reported Psychiatric/Neurological: no symptoms reported Hematologic/Lymphatic: no symptoms reported Immunological/Allergic: no symptoms reported Physical Exam General Appearance: No Apparent Distress EENT: eyes nml inspection, nml ENT inspection, pharynx nml Neck: Non-Tender, Full Range of Motion, Supple, Normal Inspection Respiratory: chest non-tender, lungs clear, normal breath sounds, no respiratory distress CVS: reg rate & rhythm, no murmur, no gallop, pulses nml Gastrointestinal: Normal Bowel Sounds, No Organomegaly, No Pulsatile Mass, Non Tender Back: Normal Inspection, No CVA Tenderness, No Vertebral Tenderness Extremities: Normal Range of Motion, Non-Tender, Pedal Edema (3/6) 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 NML as Tested, No Motor/Sensory Deficits, Alert Skin: Normal Color, Warm/Dry Lymphatic: No Adenopathy Results/Orders Results/Orders Laboratory Tests Test 04/24/18 00:00 04/24/18 22:55 Urine Collection Type UNKNOWN Urine Color YELLOW (YELLOW) Urine Appearance CLEAR (CLEAR) Urine Bilirubin NEGATIVE MG/DL (NEGATIVE) Urine Ketones NEGATIVE (NEGATIVE) Urine Specific [place] 1.010 (1.005-1.035) Urine pH 6 (5.0-6.0) Urine Protein NEGATIVE (NEGATIVE) Urine Urobilinogen NORMAL (NEGATIVE) Urine Nitrate NEGATIVE (NEGATIVE) Urine Leukocyte Esterase NEGATIVE (NEGATIVE) Urine Blood NEGATIVE (NEGATIVE) Urine Glucose NORMAL (NEGATIVE) White Blood Count 6.8 10^3/uL (4.5-11.0) Red Blood Count 3.95 10^6/uL (4.00-5.20) Hemoglobin 11.8 g/dL (12.0-15.0) Hematocrit 36.0 % (36.0-46.0) Mean Corpuscular Volume 91.1 fL (78-100) Mean Corpuscular Hemoglobin 29.9 pg (26-34) Mean Corpuscular Hemoglobin Concent 32.8 g/dL (33-37) Red Cell Distribution Width 15.8 % (11.5-14.5) Platelet Count 282 10^3/uL (150-400) Mean Platelet Volume 8.9 fL (7.8-11.0) Neutrophils (%) (Auto) 46.7 % (41.0-85.0) Lymphocytes (%) (Auto) 25.3 % (24.0-44.0) Monocytes (%) (Auto) 18.0 % (5.0-12.0) Neutrophils # (Auto) 3.2 10^3/uL (1.8-7.7) Lymphocytes # (Auto) 1.7 10^3/uL (1.0-4.8) Monocytes # (Auto) 1.2 10^3/uL (0.3-0.8) Absolute Immature Granulocyte (auto 0 10^3 u/L (0-2) Eosinophils % 9.3 % (0.0-5.0) Basophils % 0.7 % (0.0-0.2) Basophils # 0.1 10^3/uL (0.0-0.1) Eosinophil Count 0.6 10^3/uL (0.0-0.2) Prothrombin Time 10.4 SEC (9.8-11.9) Prothrombin Time INR (Non-Therap) 1.0 Activated Partial Thromboplast Time 23.1 SEC (24.67-30.72) Sodium Level 133 mmol/L (132-145) Potassium Level 3.4 mmol/L (3.6-5.2) Chloride Level 94.0 mmol/L (96-109) Carbon Dioxide Level 29.2 mmol/L (20.0-32) Anion Gap 13.2 Blood Urea Nitrogen 13 mg/dL (7-18) Creatinine 1.38 mg/dL (0.59-1.40) Estimated GFR () 44.3 (>/=60) BUN/Creatinine Ratio 9.0 Glucose Level 99 mg/dL (70-110) Calcium Level 9.0 mg/dL (8.4-10.5) Total Bilirubin 0.5 mg/dL (0.2-1.0) Aspartate Amino Transf (AST/SGOT) 26 U/L (0-35) Alanine Aminotransferase (ALT/SGPT) 15 U/L (12-78) Alkaline Phosphatase 112 U/L (50-136) Total Creatine Kinase 66 U/L (26-192) Creatine Kinase MB 1.2 ng/mL (0.5-3.6) Troponin I < 0.02 ng/mL (0.00-0.05) Pro-B-Type Natriuretic Peptide 499 pg/mL (0-450) Total Protein 7.2 g/dL (6.4-8.2) Albumin 3.6 g/dL (3.4-5.0) Globulin 3.6 Percent Immature Gran (Cell Imm) 0.00 % (0.00-0.50) Administered Medications Medications (Trade) Dose Ordered Sig/Pricilla Route PRN Reason Start Time Stop Time Status Last Admin Dose Admin Furosemide (Lasix) 40 mg DAILY STAT IM 04/25/18 00:36 04/25/18 00:39 DC 04/25/18 00:52 Lorazepam (Ativan) 0.5 mg STAT STAT PO 04/25/18 00:36 04/25/18 00:39 DC 04/25/18 00:52 Departure Time of Disposition: 01:17 Disposition: 01 HOME, SELF-CARE Impression: Primary Impression: Anxiety Additional Impressions: Dyspnea COPD (chronic obstructive pulmonary disease) Condition: Stable Patient Instructions: Heart Failure, [id number], Shortness of Breath, Easy-to -Read, Sodium and Fluid Restriction, Tremor Referrals: SANDRO DO MD (PCP) PRIMARY CARE PROVIDER Duration or Time Spent with Pa: ZION RENTERIA MD Apr 24, 2018 22:59
--- NOTE | 2018-04-24 23:00 | NUR ---
EKG WILLAM, RT IN PT ROOM FOR EKG AT THIS TIME.
[2018-04-24 23:07] LABS: BASOPHIL # 0.1 10^3/uL (0.0-0.1); BASOPHIL % 0.7 % (0.0-0.2); EOSINOPHIL # 0.6 10^3/uL (0.0-0.2); EOSINOPHIL % 9.3 % (0.0-5.0); HEMOGLOBIN 11.8 g/dL (12.0-15.0); LYMPHOCYTES # 1.7 10^3/uL (1.0-4.8); LYMPHOCYTES % 25.3 % (24.0-44.0); MEAN CELL HGB 29.9 pg (26-34); MEAN CELL HGB CONCENTRATION 32.8 g/dL (33-37); MEAN CORP VOLUME 91.1 fL (78-100); MEAN PLATELET VOLUME 8.9 fL (7.8-11.0); MONOCYTES # 1.2 10^3/uL (0.3-0.8); NEUTROPHIL # 3.2 10^3/uL (1.8-7.7); NEUTROPHILS % 46.7 % (41.0-85.0); RED CELL DISTRIBUTION WIDTH 15.8 % (11.5-14.5); WHITE BLOOD CELL 6.8 10^3/uL (4.5-11.0)
--- NOTE | 2018-04-24 23:09 | PCM.EKG ---
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
--- NOTE | 2018-04-24 23:11 | NUR ---
GREG ROSSI IN PT ROOM FOR CHEST XRAY WITH PORTABLE AT THIS TIME.
[2018-04-24 23:26] VITALS: BP 147/98
[2018-04-24 23:31] LABS: ALANINE AMINOTRANSFERASE(ML) 15 U/L (12-78); ALKALINE PHOSPHATASE 112 U/L (50-136); ASPARTATE AMINO TRANSFERASE 26 U/L (0-35); CARBON DIOXIDE 29.2 mmol/L (20.0-32); GLUCOSE 99 mg/dL (70-110)
--- NOTE | 2018-04-24 23:38 | NUR ---
BEDSIDE PT UP TO BEDSIDE COMMODE FOR UA AT THIS TIME.
--- NOTE | 2018-04-24 23:45 | NUR ---
BED PT BACK TO BED AT THIS TIME. PT HAD OUTPUT OF 400ML OF URINE AT THIS TIME. UA COLLECTED AND TAKEN TO LAB. PT PROVIDED FRESH WARM BLANKETS. LIGHTS TURNED OUT. PT STATES NO OTHER NEEDS, CONCERNS, REQUESTS AT THIS TIME.
[2018-04-24 23:53] LABS: BILIRUBIN,URINE NEGATIVE (NEGATIVE); UROBILINOGEN,URINE NORMAL (NEGATIVE)
[2018-04-24 23:54] LABS: APPEARANCE,URINE CLEAR (CLEAR); UA COLOR YELLOW (YELLOW)
[2018-04-24 23:56] VITALS: BP 145/84
--- NOTE | 2018-04-24 23:57 | DIREP ---
PROCEDURE:CHEST 1 VIEW COMPARISON:[facility], CR, XRAY CHEST 2 VWS, 04/18/2018, 05:33 PM. INDICATIONS:weakness FINDINGS: LUNGS/PLEURA:Blunt left costophrenic sinus new as compared to previous study. The lungs are otherwise clear. VASCULATURE:Normal. Unremarkable pulmonary vasculature. CARDIAC:Heart size cannot be evaluated due to scoliosis. MEDIASTINUM:Calcification aortic arch. BONES:Previous cervical spine surgery with hardware in place. Dextroscoliosis thoracic spine. Arthritic changes left shoulder. Previous kyphoplasty T12 and L1. OTHER:IVC filter in the upper abdomen. CONCLUSION:Blunting of the left costophrenic sinus new as compared to previous study. Dictated by: Houston Mayen M.D. on 04/24/2018 at 11:54 PM
[2018-04-25] MEDS ORDERED: LASIX ONE (00:30)
[2018-04-25] MEDS: LASIX IV STA (00:35)
[2018-04-25] MEDS ORDERED: ATIVAN ONE (00:42)
[2018-04-25] MEDS: LASIX IM STA (00:52)
[2018-04-25] MEDS: ATIVAN PO STA (00:52)
[2018-04-25 01:00] VITALS: BP 154/94
--- NOTE | 2018-04-25 01:09 | DIREP ---
PROCEDURE:CT HEAD WITHOUT CONTRAST TECHNIQUE:Axial cuts were obtained through the head, without intravenous contrast material. The images were viewed at brain and bone settings. COMPARISON:[facility], CT, CT HEAD BRAIN W/O CONTRAST, 07/03/2017, 07:04 PM. INDICATIONS:Tremors FINDINGS: VENTRICLES:Normal. CEREBRUM:Normal. CEREBELLUM:Normal. BRAINSTEM:Normal. SKULL:Posterior spinal surgery with hardware extending to the sub occipital region. SINUSES:Mucoperiosteal thickening left maxillary, left sphenoid, left ethmoid and left frontal sinuses. OTHER:Negative. CONCLUSION: 1. No intracranial abnormalities. 2. Previous cervical occipital surgery. 3. Left frontal, ethmoid, maxillary and sphenoid sinusitis. Dictated by: Houston Mayen M.D. on 04/25/2018 at 01:02 AM
[2018-04-25 01:26] VITALS: BP 142/78
[2018-04-25 02:00] VITALS: BP 142/78
== END 2018-04-25 01:31 | disposition home or self-care (01) ==
LOC: EDBD 22:39 → ER 22:39
DX: J44.9 Chronic obstructive pulmonary disease, unspecified (principal); F41.9 Anxiety disorder, unspecified; E78.00 Pure hypercholesterolemia, unspecified; I10 Essential (primary) hypertension; Z79.82 Long term (current) use of aspirin; Z79.899 Other long term (current) drug therapy; Z88.0 Allergy status to penicillin; Z88.2 Allergy status to sulfonamides; Z88.5 Allergy status to narcotic agent; Z90.710 Acquired absence of both cervix and uterus; Z90.49 Acquired absence of other specified parts of digestive tract; Z79.1 Long term (current) use of non-steroidal anti-inflammatories (NSAID); Z79.891 Long term (current) use of opiate analgesic
CPT/HCPCS: 36415; 70450; 71045; 80053; 81002; 82550; 82553; 83880; 84484; 85025; 85610; 85730; 93005; 96372; 99285; J1940